=== PATIENT | female | born 1960 | race Caucasian/White ===

== ENCOUNTER 2019-05-31 15:11 | Emergency (ER) | payer BC, MEDICARE, SELFPAY ==
[2019-05-31 15:22] VITALS: BP 100/77; PULSE 93; RESP 14; TEMP 37; O2SAT 99
== END 2019-05-31 15:36 | disposition left against medical advice (07) ==
LOC: EXPBETH 15:19
PROVIDERS: Emergency Provider Nurse Practitioner Family
DX: Z53.21 Procedure and treatment not carried out due to patient leaving prior to being seen by health care provider (principal)
CPT/HCPCS: 99199

== ENCOUNTER 2019-10-14 10:30 | Outpatient (RCR) | payer BC, MEDICARE, SELFPAY ==
--- NOTE | 2019-09-06 11:19 | PTOPEVAL ---
PHYSICAL THERAPY EVALUATION AND PLAN OF CARE Thank you for referring Linda Barrett to [facility]. Linda has been scheduled to participate in physical therapy 2x/week for 4 weeks. Please review, sign, date and return this plan of care LATHA. I agree with and certify that the following plan of care is medically necessary. Referring Physician Date Evaluation Hx Parkinson's Disease Yes: 2012 Evaluation Information Diagnosis Parkinson's disease Onset 2012 Subjective Information first symptoms: right thumb Query Text:As Reported By Patient/ twitching; progressed to very Family impaired walking with sudden rigidity and freezing ( medication: mantadine, assists with preventing freezing). Reports also experiencing pain in arms, shoulders, legs, and especially knees. Likely pain is from over lina more recently: right wrist is sore, gets tired from activity. Tries to walk and go to the store. Activities around the home: no longer performs stair climbing, she does cook. She is able to perform bathing and dressing and laundry, but due to trouble with her hands her bra and shoes are difficult had a deep brain stimulator implanted in March 2018. She was using a cane until this DBS was implanted. participates in [employer] Prior Level of Function Activity Level (Last 3 Months) Hand Dominance Right Activity of Daily Living Ability Independent Indoor/Home Mobility Independent Community Mobility Needs Some Help Stairs Ability Dependent Cooking Yes Cleaning No Laundry No Shopping Yes Driving Yes Medications Home Meds ritary 3x/day Home Setting Home Type House Environmental Barriers Stairs, Greater than 4 Living Situation With Spouse Support Available Local Family Support Mobility Assistive Devices (Used Last 3 None Months) Self Report Pain Assessment Right Wrist(s) Reported P
--- NOTE | 2019-10-14 11:24 | PTOPEVAL ---
PHYSICAL THERAPY DISCHARGE NOTE Thank you for referring Linda Barrett to [facility].? Please review, sign, date and return this plan of care LATHA. I agree with and certify that the following plan of care is medically necessary. Referring Physician Date Discharge Outpatient Past Medical History Neurological History Hx Parkinson's Disease Yes: 2012 Diagnosis Parkinson's disease Onset 2012 Subjective Information nothing new to report; her son Query Text:As Reported By Patient/ moved in and he has a large Family dog; feels as though her walking as improved significantly. She enjoys doing her exercises and understands methods of decreasing rigidity Self Report Self Report Pain Level 0 Posture Posture Standing Position Posture Evaluation View Anterior Thoracic Spine Posture Neutral Lumbar Spine Posture Flexed Shoulder Posture Neutral Scapula Posture (L) Neutral,(R) Neutral Hip Posture (L) Externally Rotated,(R) Externally Rotated Knee Posture (L) Excess Flexion,(R) Excess Flexion Patellar Posture (L) Neutral,(R) Neutral Balance Assessment Garcia Balance Assessment Sitting to Standing Independent w/out Hands Unsupported Stance Ability Safely- 2 minutes Sitting Unsupported, Feet on Floor Safely- 2 minutes Standing to Sitting Safely, Minimal Hand Use Transfer Ability Safely, Minimal Hand Use Unsupported Stance- Eyes Closed Supervision, 10 seconds Unsupported Stance- Feet Together Independent, 1 minute Reaching Forward while Standing Safely, 5 inches food production supervisor Object From Floor Supervision Look Behind Shoulder - Standing Shifts Weight Unilateral Turning 360 Degrees Turns slowly, but safely Unsupported Stance, Alternating Feet on 4 Steps w/Supervision Stair Unsupported Tandem Stance Small Step- 30 seconds Unilateral Leg Stance Lifts Leg/Unable to Hold GARCIA Balance Evaluation Total Score (/56 43 points) Time Up Go (TUG) Timed Up and Go Test (TUG) (Seconds) 12 Assistive Devices None Comments 1month ago = 26seconds 5 Time Sit to Stand Time in Seconds 12.16 5 Time Sit to Stand Comments 1month ago = 13.66seconds Query Text:Normative Data: If Greater Than 15 Seconds, 74% Increase Risk for Recurrent Falls Gait Assessment 6 Minute Walk Total Distance (feet) 730 6 Minute Walk Gait Speed Score (feet/ 2.02 second)
== END 2019-11-20 08:51 | disposition home or self-care (01) ==
LOC: ANHPT 10:30
DX: G20 Parkinson's disease (principal); G24.9 Dystonia, unspecified; Z96.89 Presence of other specified functional implants
CPT/HCPCS: 97110; 97162

== ENCOUNTER 2021-04-13 16:30 | Outpatient (RCR) | payer BC, MEDICARE, SELFPAY ==
--- NOTE | 2021-03-15 17:12 | PTOPEVAL ---
Thank you for referring Linda Barrett to [facility].? The patient is scheduled to be seen for therapy?1-2 x/week for 8 weeks. Please review, sign, date and return this plan of care LATHA. I agree with and certify that the following plan of care is medically necessary. Referring Physician Date Referring Provider: Libra Kessler, ROTO MIXER OPERATOR Diagnosis Parkinson's disease, decreased balance Additional Evaluation Detail She has rollator at home and a cane for community. She had previous therapy in 2019, but was not using an AD. s/p deep brain stimulated ~ 5- 6 yrs ago Subjective Information She had a change in her Query Text:As Reported By Patient/ medication ~ 1 month ago which Family affected her functional mobility. She started using the cane at that time. Reports she is falling 2-3x/ month. She is walking or turning when she falls. She normally performs the cooking and cleaning. She is attending [facility] 2x /wk, but has been for 3 wks. Prior Level of Function Home Setting Home Type House Environmental Barriers Stairs, 2-4 Living Situation With Spouse Mobility Assistive Devices (Used Last 3 Cane,Walker, Rollator Months) Pain Assessment Timing of Pain Assessment Timing of Pain Assessment Assessment Pain Scale Pain Scale Used Numeric (1 - 10) Self Report Pain Assessment Bilateral Knee(s) Reported Pain Level 5 Pain Aggravating Factors Prolonged Position Pain Score Pain Score 5: Self Report Interventions Used Interventions Used By Clinicians Education,Exercise Lower Extremity Range of Motion Hip Range of Motion Right Hip Extension Range of Motion - Passive -10 Hip Medial Rotation - Passive 5 Hip Range of Motion Limitations Muscle Length Restriction, Muscle Tone,Soft Tissue Restriction Left Hip Extension Range of Motion - Active -10 Hip Medial Rotation - Passive 10 Knee Range of Motion Right Knee Extension Range of Motion - Active -8 Query Text: Left Knee Extension Range of Motion - Active -10 Query Text: Lower Extremity Muscle Strength Testing Hip Strength Bilateral Hip Flexion Strength 4 Good Hip Extension Strength 3 Fair Hip Abduction Strength 3 Fair Knee
--- NOTE | 2021-04-13 17:15 | PTOPEVAL ---
Physical Therapy Discharge Summary Thank you for referring Linda Barrett to [facility].? Linda has reached maximal potential with skilled therapy services at this time. Will DC skilled PT with recommendations to use ww and cont with HEP. Please review, sign, date and return this discharge summary LATHA. I agree with and certify that the following plan of care is medically necessary. Referring Physician Date Referring Provider: Libra Kessler, WAREHOUSE HAND Diagnosis Parkinson's disease, decreased balance Additional Evaluation Detail She has rollator at home and a cane for community. She had previous therapy in 2019, but was not using an AD. s/p deep brain stimulated ~ 5- 6 yrs ago Subjective Information She is using the ww at home 95 Query Text:As Reported By Patient/ % of the time. She reports Family only 1 fall a month since starting therapy. She cont to have difficulty with turning activities. [facility] She is performing HEP daily. Pain Assessment Timing of Pain Assessment Timing of Pain Assessment Re-assessment Pain Scale Pain Scale Used Numeric (1 - 10) Self Report Pain Assessment Bilateral Knee(s) Reported Pain Level 0 Pain Score Pain Score 0: Self Report Lower Extremity Range of Motion Hip Range of Motion Right Hip Extension Range of Motion - Passive -5 Hip Medial Rotation - Passive 0 Hip Range of Motion Limitations Muscle Length Restriction, Muscle Tone,Soft Tissue Restriction Left Hip Extension Range of Motion - Active -2 Hip Medial Rotation - Passive 0 Lower Extremity Muscle Strength Testing Hip Strength Bilateral Hip Flexion Strength 4 Good Hip Extension Strength 3+ Fair + Hip Abduction Strength 3+ Fair + Knee Strength Bilateral Knee Flexion Strength 4+ Good + Knee Extension Strength 4+ Good + Posture Posture Standing Position Head/C-Spine Posture Forward Head Thoracic Spine Posture Increased Kyphosis Shoulder Posture (L) Elevated,(R) Elevated Scapula Posture (L) Protracted,(R) Protracted Weight Distribution Weight Shifted Right,Decreased Wt.Bear on (L) Hip Posture (L) Externally Rotated,(R) Externally Rotated Additional Posture Comments hip ext rotation left > right Balance Assessment Garcia Balance Assessment GARCIA Balance Eval
== END 2021-04-14 09:09 | disposition home or self-care (01) ==
LOC: ANHPT 16:30
DX: G20 Parkinson's disease (principal); R29.6 Repeated falls; Z96.89 Presence of other specified functional implants
CPT/HCPCS: 97110; 97112; 97162; 97530